=== PATIENT | male | born 1985 | race Caucasian/White ===

== ENCOUNTER 2019-06-01 10:36 | Inpatient (IN) | payer OTHER ==
[~2019-06-01] VITALS: Ht 172.7 cm; Wt 79.9 kg
[2019-06-01 11:11] LABS: BASOPHILS # (AUTO) 0.1 K/uL (0.0-8.0); BASOPHILS % (AUTO) 1.1 % (0.0-2.0); EOSINOPHILS # (AUTO) 0.1 K/uL (0.0-0.7); EOSINOPHILS % (AUTO) 1.4 % (0.0-7.0); LYMPHOCYTES % (AUTO) 13.3 % (20.5-51.5); MEAN CORPUSCULAR HGB CONC 35 g/dL (32.5-36.3); MEAN CORPUSCULAR VOLUME 84.9 fL (73.0-96.2); NEUTROPHILS # (AUTO) 5.4 K/uL (1.8-8.9); NEUTROPHILS % (AUTO) 71.2 % (38.5-71.5); PLATELET COUNT (AUTO) 430 K/uL (152-348); WHITE BLOOD COUNT (AUTO) 7.6 K/uL (3.6-10.2)
[2019-06-01 11:15] LABS: CREATININE 2.4 mg/dL (0.6-1.3); POTASSIUM 3.9 mmol/L (3.5-5.1)
--- NOTE | 2019-06-01 11:15 | NUR ---
HGB of 6.[address] barron
[2019-06-01] MEDS ORDERED: DOCU100C36 GT (11:16)
[2019-06-01] MEDS ORDERED: MAGN400O6 GT (11:16)
[2019-06-01] MEDS ORDERED: CLON0.3T GT (11:16)
[2019-06-01] MEDS ORDERED: BISA10SU61 RC (11:16)
[2019-06-01] MEDS ORDERED: ARGI1POW17 GT (11:16)
[2019-06-01] MEDS ORDERED: NA P133E RC (11:16)
[2019-06-01] MEDS ORDERED: AMLO10TA4 GT (11:16)
[2019-06-01] MEDS ORDERED: LEVE500T9 GT (11:16)
[2019-06-01] MEDS ORDERED: SITA50TA GT (11:16)
[2019-06-01] MEDS ORDERED: FERROUS SULFATE GT (11:16)
[2019-06-01] MEDS ORDERED: INSU100V36 SQ (11:16)
[2019-06-01] MEDS ORDERED: METO5TAB87 GT (11:16)
[2019-06-01] MEDS ORDERED: DOXA8TAB79 GT (11:16)
[2019-06-01] MEDS ORDERED: HYDR-894 GT (11:16)
[2019-06-01] MEDS ORDERED: SENN-168 GT (11:16)
[2019-06-01] MEDS ORDERED: ISOS20TA8 GT (11:16)
[2019-06-01] MEDS ORDERED: MINO2.5T GT (11:16)
[2019-06-01] MEDS ORDERED: ACET-2605 GT (11:16)
[2019-06-01] MEDS ORDERED: CHLO473M3 MM (11:16)
[2019-06-01] MEDS ORDERED: SODI10PO GT (11:16)
[2019-06-01] MEDS ORDERED: LABE300T2 GT (11:16)
[2019-06-01] MEDS ORDERED: FURO-152 GT (11:16)
[2019-06-01] MEDS ORDERED: IPRA3AMP23 NEB (11:16)
[2019-06-01] MEDS ORDERED: EPOE1VIA12 SQ (11:16)
[2019-06-01] MEDS ORDERED: INSU100I26 SQ (11:16)
[2019-06-01] MEDS ORDERED: SPIR50TA GT (11:16)
[2019-06-01] MEDS ORDERED: FAMO20TA8 GT (11:16)
[2019-06-01] MEDS ORDERED: NUT.237L67 GT (11:16)
--- NOTE | 2019-06-01 11:18 | NUR ---
at bedside to examine patient.
[2019-06-01 11:21] LABS: BILIRUBIN,DIRECT 0.1 mg/dL (0.0-0.2); BILIRUBIN,TOTAL 0.3 mg/dL (0.2-1.0); TOTAL PROTEIN, SERUM 6.6 g/dL (6.4-8.2)
--- NOTE | 2019-06-01 12:30 | NUR ---
1 unit of PRBC's started at this time. SBP pf 157/78, Hr of 81, 100% saturation and temp of 98.1. witness RAshlie [place]. No transfusion reaction noted at this time will continue to monitor.
[2019-06-01 12:33] LABS: BAND % (MANUAL) 1 % (0-10); EOSINOPHILS % (MANUAL) 1 % (0-8); LYMPHOCYTES % (MANUAL) 12 % (20-40); MONOCYTES % (MANUAL) 7 % (2-10); NEUTROPHILS % (MANUAL) 79 % (42-75)
[2019-06-01] MEDS ORDERED: LEVOFLOXACIN 500 MG/D5W 100ML PIGGYBACK IV ONE (12:45)
--- NOTE | 2019-06-01 12:45 | NUR ---
15 minutes after started blood transfusion: sbp of 157/80, Hr 82, 98.0 oral temp. sauration of 100%. No blood transfusion reaction noted. Will continue with care plan.
[2019-06-01] MEDS ORDERED: LEVOFLOXACIN 500 MG/D5W 100 ML ONE (13:13)
--- NOTE | 2019-06-01 13:56 | NUR ---
Telephone report given to charge nurse Kemp. All systems reported.trach portex 7 Tpiece 6L oxygen PEG clamped. Peralta to gravity. IV lines bilateral to hands patent. vitals 98.0 temp, 149/80, 100% on trache to portex 6L. blood transfusion in progress and to be completed by receiving R.N.
--- NOTE | 2019-06-01 14:49 | NUR ---
blood transfusion completed, sbp of 160/82 Hr 88, 98% on RA. 0/10 pain reported and 98.1 temp orally. Awaiting insurance approval for admission.
--- NOTE | 2019-06-01 15:20 | NUR ---
Pt trans to tele floor, NAD noted.
--- NOTE | 2019-06-01 15:30 | NUR ---
RECEIVED PATIENT FROM ER. PATIENT AWAKE AND ALERT X1. PATIENT NON VERBAL. NO ACUTE DISTRESS NOTED. PATIENT ON 4L OF OXYGEN VIA TRACH. PATIENT HAS NO SKIN ISSUES. BED IN LOWEST POSITION, SIDE RAILS UP X2, WILL CONTINUE TO MONITOR.
[2019-06-01 16:07] VITALS: BP 166/73
--- NOTE | 2019-06-01 16:30 | NUR ---
[facility] CALLED TO [address] TINEO FOR ADMITTING ORDERS.
[2019-06-01] MEDS ORDERED: ZOLPIDEM 5 MG TABLET PO PRN (18:00)
[2019-06-01] MEDS ORDERED: ONDANSETRON 4 MG/2 ML VIAL IV PRN (18:00)
[2019-06-01] MEDS ORDERED: Z GUARD REMEDY PASTE 57 GM TUBE TOP PRN (18:00)
[2019-06-01] MEDS ORDERED: MAGNESIUM HYDROXIDE 30 ML LIQUID UDC PO PRN (18:00)
[2019-06-01] MEDS ORDERED: HYDROCODONE/APAP 5-325MG TABLET PO PRN (18:00)
--- NOTE | 2019-06-01 18:13 | NUR ---
PATIENT SLEPT INTERMITTENTLY, PATIENT DENIES PAIN. SAFETY MEASURES TAKEN.
[2019-06-01] MEDS ORDERED: FLEET ENEMA 133 ML BOTTLE RC PRN (18:15)
[2019-06-01] MEDS ORDERED: MAGNESIUM HYDROXIDE 30 ML LIQUID UDC GT PRN (18:15)
[2019-06-01] MEDS ORDERED: NEPRO (VANILLA) 237 ML CAN GT SCH (18:15)
[2019-06-01] MEDS ORDERED: BISACODYL 10 MG SUPP.RECT RC PRN (18:15)
--- NOTE | 2019-06-01 19:20 | NUR ---
RECEIVED PT AWAKE ON BED. PT SHOWS NO SIGNS OF ACUTE DISTRESS. PT ON TRACH. IV INTACT. SAFETY AND COMFORT PROVIDED. WILL CONTINUE TO MONITOR.
[2019-06-01 20:33] VITALS: BP 120/54
[2019-06-01] MEDS ORDERED: DOXAZOSIN MESYLATE 8 MG GT SCH (21:00)
[2019-06-01] MEDS ORDERED: DOCUSATE SODIUM 100 MG CAPSULE PO SCH (21:00)
[2019-06-01] MEDS: LEVETIRACETAM 500 MG TABLET GT SCH (21:35)
[2019-06-01] MEDS: CLONIDINE HCL 0.3 MG TABLET GT SCH (21:42)
[2019-06-01] MEDS: METOCLOPRAMIDE HCL 5 MG TABLET GT SCH (21:42)
[2019-06-01] MEDS: SENNOSIDES 1 TABLET GT SCH (21:42)
[2019-06-01] MEDS: hydrALAZINE HCL 25 MG TABLET GT SCH (21:43)
[2019-06-01] MEDS: ACETAMINOPHEN 325 MG TABLET PO PRN (21:51)
[2019-06-01] MEDS ORDERED: LABETALOL HCL 600 MG GT SCH (22:00)
[2019-06-02] VITALS (7 sets, daily range): BP systolic 124–167; BP diastolic 59–75
[2019-06-02] MEDS: CLONIDINE HCL 0.3 MG TABLET GT SCH ×3 (05:15→22:30)
[2019-06-02] MEDS: hydrALAZINE HCL 25 MG TABLET GT SCH (05:15)
[2019-06-02] MEDS: METOCLOPRAMIDE HCL 5 MG TABLET GT SCH ×3 (05:15→22:30)
--- NOTE | 2019-06-02 06:26 | NUR ---
PT SLEPT INTERMITTENTLY. PT SHOWS NO SIGNS OF ACUTE DISTRESS. PRESCRIBED MEDICATION GIVEN AND PT TOLERATED IT WELL. PT TURNED AND REPOSITIONED. SAFETY AND COMFORT PROVIDED. WILL CONTINUE TO MONITOR.
[2019-06-02] MEDS ORDERED: HYDROCODONE/APAP 5-325MG TABLET GT PRN (07:29)
[2019-06-02] MEDS ORDERED: NEPRO 1000 ML GT PRN (07:30)
[2019-06-02 08:23] LABS: BASOPHILS # (AUTO) 0.1 K/uL (0.0-8.0); EOSINOPHILS # (AUTO) 0.1 K/uL (0.0-0.7); EOSINOPHILS % (AUTO) 1.3 % (0.0-7.0); HEMATOCRIT 23.2 % (36.7-47.1); LYMPHOCYTES # (AUTO) 0.9 K/uL (20.0-40.0); LYMPHOCYTES % (AUTO) 10.9 % (20.5-51.5); MEAN CORPUSCULAR HGB CONC 35 g/dL (32.5-36.3); MONOCYTES # (AUTO) 0.9 K/uL (2.0-10.0); MONOCYTES % (AUTO) 11.4 % (0.0-11.0); NEUTROPHILS # (AUTO) 6.2 K/uL (1.8-8.9); NEUTROPHILS % (AUTO) 75.4 % (38.5-71.5); PLATELET COUNT (AUTO) 420 K/uL (152-348); RED BLOOD CELL COUNT(AUTO) 2.66 MIL/uL (4.06-5.63); WHITE BLOOD COUNT (AUTO) 8.2 K/uL (3.6-10.2)
[2019-06-02 08:35] LABS: CREATININE 2.1 mg/dL (0.6-1.3); MAGNESIUM 1.9 mg/dL (1.8-2.4); PHOSPHOROUS 4.3 mg/dL (2.5-4.9); POTASSIUM 3.9 mmol/L (3.5-5.1)
[2019-06-02] MEDS ORDERED: Medication Not On Formulary EA (Sitagliptin Phosphate (Januvia) 25 MG) GT SCH (09:00)
[2019-06-02] MEDS: MINOXIDIL 2.5 MG TABLET GT SCH (09:04)
[2019-06-02] MEDS: LEVETIRACETAM 500 MG TABLET GT SCH ×2 (09:04→21:10)
[2019-06-02] MEDS: FAMOTIDINE 20 MG TABLET GT SCH (09:04)
[2019-06-02] MEDS: AMLODIPINE 10 MG TABLET GT SCH (09:04)
[2019-06-02] MEDS: SPIRONOLACTONE 50 MG TABLET GT SCH (09:05)
[2019-06-02] MEDS: ISOSORBIDE DINITRATE 20 MG TABLET GT SCH ×3 (09:05→17:00)
[2019-06-02] MEDS: LINAGLIPTIN 5 MG TABLET GT SCH (09:05)
[2019-06-02] MEDS: FUROSEMIDE 20 MG TABLET GT SCH (09:05)
[2019-06-02] MEDS: DOCUSATE SODIUM 100 MG/10 ML LIQUID UDC GT SCH ×2 (09:06→21:12)
[2019-06-02] MEDS: CHLORHEXIDINE GLUCONATE 15 ML MOUTHWASH MM SCH (09:25)
--- NOTE | 2019-06-02 10:45 | NUR ---
PT IN NO ACUTE DISTRESS. PRESCRIBED MEDICATION GIVEN AND PT TOLERATED IT WELL. PT WALKED THE PT. IV INTACT. PT ON 2L NASAL CANNULA. ENDORSE TO INCOMING NURSE FOR CONTINUITY OF CARE.
[2019-06-02] MEDS ORDERED: ALBUTEROL SULFATE 2.5 MG/ 0.5 ML NEBU NEB PRN (12:00)
[2019-06-02] MEDS ORDERED: IPRATROPIUM BROMIDE 0.5 MG/2.5 ML NEBU NEB PRN (12:00)
[2019-06-02] MEDS: BLOOD SUGAR DIAGNOSTIC 1 EACH STRIP VI SCH ×2 (12:00→18:51)
[2019-06-02] MEDS ORDERED: DEXTROSE 50% 50 ML DISP.SYRIN IV PRN (12:00)
[2019-06-02] MEDS: hydrALAZINE HCL 50 MG TABLET GT SCH ×2 (14:12→22:31)
--- NOTE | 2019-06-02 16:50 | NUR ---
Patient recieved alert and oriented to self, unable to fully assess as patient answers both yes, no to each question posed.. IV access to left hand is patent with good blood return, site is clean and dry without signs of phlebitis. Skin noted to be intact, small scab to right side abdomen vlosed no drainage or signs of infection. head of bed inclined at 40 degrees while continuous g-tube infuses. 0Ml residual from G- tube, bowel sounds present, abdomen is soft, non tender. All orders carried out, patient tolerated care well no signs of distress noted. Family at bedside this shift, Jailene care provided and G- tube dressing changed.
--- NOTE | 2019-06-02 19:30 | NUR ---
Received patient in bed awake, able to answer questions w/ yes or no. Patient on trach and on Tele monitor. IV site on R and L hand intact and patent to saline flush. On GT feeding Nephro 40ml/hr x 20hrs. F/C intact and draining clear yellow urine. Safety measures observed. Will continue to monitor
[2019-06-02] MEDS: LABETALOL HCL 200 MG TABLET GT SCH (21:10)
[2019-06-02] MEDS: SENNOSIDES 1 TABLET GT SCH (21:12)
[2019-06-02] MEDS: DOXAZOSIN 2 MG TABLET GT SCH (21:12)
[2019-06-02] MEDS: ACETAMINOPHEN 325 MG TABLET PO PRN (21:15)
[2019-06-03] MEDS: BLOOD SUGAR DIAGNOSTIC 1 EACH STRIP VI SCH ×5 (00:31→23:25)
[2019-06-03] MEDS: INSULIN REGULAR, HUMAN 300 UNIT/3 ML VIAL SQ PRN ×5 (00:32→23:32)
[2019-06-03 00:33] VITALS: BP 144/61
[2019-06-03 04:00] VITALS: BP 149/67
[2019-06-03] MEDS: CLONIDINE HCL 0.3 MG TABLET GT SCH ×3 (05:45→21:45)
[2019-06-03] MEDS: METOCLOPRAMIDE HCL 5 MG TABLET GT SCH ×3 (05:46→21:45)
[2019-06-03] MEDS: hydrALAZINE HCL 50 MG TABLET GT SCH ×3 (05:46→21:45)
--- NOTE | 2019-06-03 06:35 | NUR ---
Patient slept well through out the night. No SOB noted, not in distress. Patient on Trach. Oral care provided. HOB kept elevated for aspiration prec. SR on Tele monitor. Cont on GT feeding Nephro 40ml/hr x 20hrs, tolerated well. F/C intact and draining clear yellow urine. Turned and repositioned Q2. Will endorse accordingly
--- NOTE | 2019-06-03 08:00 | NUR ---
Received patient awake in bed. On trach, able to follow commands and answer basic yes/no questions. In no acute distress. IV on R and L hand intact and patent. Receiving Gtube feeding at 40 ml/hr. Peralta in place, dwelling well with clear yellow urine output. Safety measures implemented. Will continue to monitor.
[2019-06-03] MEDS ORDERED: EPOETIN ALFA 10,000 UNITS/ML VIAL SQ SCH (09:00)
[2019-06-03] MEDS: FAMOTIDINE 20 MG TABLET GT SCH (09:16)
[2019-06-03] MEDS: LEVETIRACETAM 500 MG TABLET GT SCH ×2 (09:16→20:35)
[2019-06-03] MEDS: DOCUSATE SODIUM 100 MG/10 ML LIQUID UDC GT SCH ×2 (09:16→20:36)
[2019-06-03] MEDS: ISOSORBIDE DINITRATE 20 MG TABLET GT SCH ×3 (09:16→17:46)
[2019-06-03] MEDS: SPIRONOLACTONE 50 MG TABLET GT SCH (09:16)
[2019-06-03] MEDS: CHLORHEXIDINE GLUCONATE 15 ML MOUTHWASH MM SCH (09:17)
[2019-06-03] MEDS: LINAGLIPTIN 5 MG TABLET GT SCH (09:17)
[2019-06-03] MEDS: AMLODIPINE 10 MG TABLET GT SCH (09:17)
[2019-06-03] MEDS: FUROSEMIDE 20 MG TABLET GT SCH (09:17)
[2019-06-03] MEDS: MINOXIDIL 2.5 MG TABLET GT SCH (09:17)
[2019-06-03 11:13] VITALS: BP 122/54
[2019-06-03] MEDS: ACETAMINOPHEN 325 MG TABLET PO PRN (14:40)
[2019-06-03 16:22] VITALS: BP 121/55
--- NOTE | 2019-06-03 18:17 | NUR ---
No change in status. Patient compliant with care and medication. Restarted Gtube feeding at 1800. No s/s of acute distress. No SOB. Will endorse to child support agent nurse accordingly.
--- NOTE | 2019-06-03 19:30 | NUR ---
Received patient in bed asleep but arousable. Able to answer questions w/ yes or no. Patient on trach and on Tele monitor. IV site on R and L hand intact and patent to saline flush. On GT feeding Nephro 40ml/hr x 20hrs. HOB kept elevated for aspiration prec. F/C intact and draining clear yellow urine. Safety measures observed. Will continue to monitor
[2019-06-03 20:15] VITALS: BP 136/59
[2019-06-03] MEDS: LABETALOL HCL 200 MG TABLET GT SCH (20:35)
[2019-06-03] MEDS: SENNOSIDES 1 TABLET GT SCH (20:35)
[2019-06-03] MEDS: DOXAZOSIN 2 MG TABLET GT SCH (20:36)
[2019-06-04] VITALS: BP 132/61
[2019-06-04 04:00] VITALS: BP 140/64
[2019-06-04] MEDS: METOCLOPRAMIDE HCL 5 MG TABLET GT SCH ×2 (05:28→13:55)
[2019-06-04] MEDS: CLONIDINE HCL 0.3 MG TABLET GT SCH ×2 (05:29→13:55)
[2019-06-04] MEDS: hydrALAZINE HCL 50 MG TABLET GT SCH ×2 (05:29→13:54)
[2019-06-04] MEDS: BLOOD SUGAR DIAGNOSTIC 1 EACH STRIP VI SCH ×2 (05:36→11:32)
[2019-06-04] MEDS: INSULIN REGULAR, HUMAN 300 UNIT/3 ML VIAL SQ PRN ×2 (05:52→11:37)
--- NOTE | 2019-06-04 06:50 | NUR ---
Patient slept well throughout the night. Oral care provided. HOB kept elevated for aspiration prec. SR on Tele monitor. Continue on GT feeding Nephro 40ml/hr x 20hrs, tolerated well. F/C intact and draining clear yellow urine. Turned and repositioned Q2. Will endorse accordingly
--- NOTE | 2019-06-04 07:15 | NUR ---
Received patient in Bed, awake. trach tube intact and midline. No signs of distress noted. No SOB. No signs of Pain or discomfort. On GTube feeding. Abdomen soft and non distended. Kept HOB elevated. All needs attended and met. Will continue to monitor.
[2019-06-04] MEDS: DOCUSATE SODIUM 100 MG/10 ML LIQUID UDC GT SCH (08:41)
[2019-06-04] MEDS: SPIRONOLACTONE 50 MG TABLET GT SCH (08:41)
[2019-06-04] MEDS: AMLODIPINE 10 MG TABLET GT SCH (08:42)
[2019-06-04] MEDS: FAMOTIDINE 20 MG TABLET GT SCH (08:42)
[2019-06-04] MEDS: LEVETIRACETAM 500 MG TABLET GT SCH (08:42)
[2019-06-04] MEDS: FUROSEMIDE 20 MG TABLET GT SCH (08:42)
[2019-06-04] MEDS: ISOSORBIDE DINITRATE 20 MG TABLET GT SCH ×2 (08:42→13:20)
[2019-06-04] MEDS: MINOXIDIL 2.5 MG TABLET GT SCH (08:42)
[2019-06-04] MEDS: CHLORHEXIDINE GLUCONATE 15 ML MOUTHWASH MM SCH (08:43)
[2019-06-04] MEDS: LINAGLIPTIN 5 MG TABLET GT SCH (08:43)
[2019-06-04 11:51] VITALS: BP 146/69
[2019-06-04 15:16] VITALS: BP 106/52
--- NOTE | 2019-06-04 16:05 | NUR ---
Patient is awake. Trach tube intact and midline. No signs of Distress noted. No SOB. No signs of Pain or Discomfort. Patient with Discharge order today to [facility] [address] and rehab, gave report to Tiago. Patient was picked up 2 EMT and 1RT in stable condition. recent hgb is 8.0, Removed monitoring analyst, IV sites and Wrist band.
== END 2019-06-04 16:10 | DRG 469 ==
LOC: ER 10:36 → TELE3 15:09
PROVIDERS: ADMIT Internal Medicine; ATTEND Internal Medicine
PROC: 30233N1 Transfusion of Nonautologous Red Blood Cells into Peripheral Vein, Percutaneous Approach (ICD-10-PCS; principal; 2019-06-01)
DX: N17.0 Acute kidney failure with tubular necrosis (principal); J96.20 Acute and chronic respiratory failure, unspecified whether with hypoxia or hypercapnia; J15.9 Unspecified bacterial pneumonia; Z93.0 Tracheostomy status; D62 Acute posthemorrhagic anemia; E11.22 Type 2 diabetes mellitus with diabetic chronic kidney disease; I69.359 Hemiplegia and hemiparesis following cerebral infarction affecting unspecified side; Z93.1 Gastrostomy status; N18.3 Chronic kidney disease, stage 3 (moderate); I12.9 Hypertensive chronic kidney disease with stage 1 through stage 4 chronic kidney disease, or unspecified chronic kidney disease; Z87.820 Personal history of traumatic brain injury; G40.909 Epilepsy, unspecified, not intractable, without status epilepticus; Z79.899 Other long term (current) drug therapy; I69.391 Dysphagia following cerebral infarction; Z90.49 Acquired absence of other specified parts of digestive tract; N40.0 Benign prostatic hyperplasia without lower urinary tract symptoms; K21.9 Gastro-esophageal reflux disease without esophagitis
CPT/HCPCS: 36415; 70030-TC; 71045; 83735; 84100; 85025; 85730; 86850; 86900; 86901; 86920; 87040; 93005; A4217; A4663; G0378; J0885; J1815; J1956; J3490; J8597; P9016-BL; P9021